=== PATIENT | female | born 1985 | race Caucasian/White ===

== ENCOUNTER 2018-12-16 22:30 | Observation (INO) | payer MEDICAID ==
--- NOTE | 2018-12-16 22:50 | EDM.PDOC ---
ED HPI GENERAL MEDICAL PROBLEM - General Chief Complaint: Abdominal Pain Stated Complaint: 6WKS PG BACK AND SIDE PAIN Time Seen by Provider: 12/16/18 22:48 Source of Information: Reports: Patient History Limitations: Reports: No Limitations - History of Present Illness INITIAL COMMENTS - FREE TEXT/NARRATIVE: 33-year-old female presents the ED with acute onset of severe left-sided lower abdominal pain started about one half hour ago. There is a bit of a colicky component to the pain. Pain is constant and she states now felt across the entire lower abdomen suprapubically. Also filling into her left side of her back. Last trimester. Was November 05 and she is known to be . She is considered 9 para 5 with 3 previous miscarriages. Previous ectopic . Also been working normally. Denies any genitourinary complaints. No previous abdominal surgery. She can't stand erect and is walking very slowly. Anus currently rated as 8 or 9 out of 10. Denies any bleeding per vagina. Onset: Today Onset Date: 12/16/18 Onset Time: 21:45 Duration: Minutes: Location: Reports: Abdomen (Diffuse lower abdominal pain worse on the left as compared to the right.), Radiates to Quality: Reports: Ache (Radiates into her left lower back.), Throbbing, Other Severity: Severe (Mild colicky component to the pain 8-9 out of 10) Improves with: Reports: None Worsens with: Reports: None, Other Context: Denies: Activity, Exercise (It is worse with walking. Cannot stand erect), Lifting, Sick Contact, Trauma, Other Associated Symptoms: Reports: Weakness. Denies: No Other Symptoms, Confusion, Chest Pain, Cough, cough w sputum, Diaphoresis, Fever/Chills, Headaches, Malaise , Nausea/Vomiting, Seizure, Shortness of Breath, Syncope Treatments CONTENT DEVELOPER: Reports: Other (see below) (None.) Bilateral Abdominal Pain Score (Numeric/FACES): 8 - Related Data Allergies Allergy/AdvReac Type Severity Reaction Status Date / Time nitrofurantoin Allergy Rash Verified 12/16/18 22:47 [From Macrobid] nitrofurantoin Allergy Rash Verified 12/16/18 22:47 macrocrystalline [From Macrobid] Penicillins Allergy Rash Verified 12/16/18 22:47 Home Meds: Home Meds Vits #93/Iron Fum/FA [ Formula Tablet] 1 tab PO DAILY 12/16/18 [History] Past Medical History - Past Health History Medical/Surgical History: Denies Medical/Surgical History 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 Denies: Dysuria, Flank Pain, Urgency Musculoskeletal: Reports: Back Pain Skin: Reports: No Symptoms (Left back pain referred from the left lower abdominal pain.) Neurological: Reports: No Symptoms Psychiatric: Reports: No Symptoms Hematologic/Lymphatic: Reports: No Symptoms Immunologic: Reports: No Symptoms ED EXAM, GI/ABD - Physical Exam Exam: See Below Exam Limited By: No Limitations General Appearance: Alert, WD/WN, Moderate Distress Eyes: Bilateral: Normal Appearance Throat/Mouth: Normal Inspection, Normal Lips, Normal Teeth, Normal Oropharynx Head: Atraumatic, Normocephalic Neck: Normal Inspection, Supple, Non-Tender, Full Range of Motion. No: Lymphadenopathy (L), Lymphadenopathy (R) Respiratory/Chest: No Respiratory Distress, Lungs Clear, Normal Breath Sounds, No Accessory Muscle Use, Chest Non-Tender Cardiovascular: Normal Peripheral Pulses, Regular Rate, Rhythm, No Edema, No Gallop, No Murmur, No Rub, Systolic Murmur GI/Abdominal Exam: Normal Bowel Sounds, Soft, Guarding, Tender (Very tender suprapubically with a sense of fullness and guarding). No: Rigid ( suprapubically midline infraumbilical.), Rebound Back Exam: Normal Inspection, Full Range of Motion. No: CVA Tenderness (L), CVA Tenderness (R) Extremities: Normal Inspection, Normal Range of Motion, Non-Tender Neurological: Alert, Oriented, CN II-XII Intact, Normal Cognition. No: Normal Gait Psychiatric: Anxious Skin Exam: Warm, Dry, Normal Color, No Rash Course - Vital Signs Last Recorded V/S: Last Vital Signs Temp 36.4 C 12/16/18 22:46 Pulse 78 12/16/18 22:46 Resp 13 12/16/18 22:46 BP 100/55 L 12/16/18 22:46 Pulse Ox 100 12/16/18 22:46 Orthostatic Blood Pressure [ 107/63 Standing] Orthostatic Blood Pressure [ 101/49 Sitting] - Orders/Labs/Meds Orders: Active Orders 24 hr Category Date Time Status Admission Status [Patient Status] [ADT] Routine ADT 12/17/18 02:25 Active Notify Provider Consults [RC] ASDIRECTED Care 12/17/18 02:18 Active Orthostatic Vital Signs [RC] ASDIRECTED Care 12/16/18 22:48 Active Consult to Physician [CONS] Stat Cons 12/17/18 02:17 Active OB Transvaginal [US] Stat Exams 12/16/18 22:55 Taken CULTURE URINE [RM] Routine Lab 12/17/18 00:53 Received Sodium Chloride 0.9% [Normal Saline] 1,000 ml Med 12/16/18 23:00 Active IV ASDIRECTED Medication Orders Sodium Chloride (Normal Saline) 1,000 mls @ 150 mls/hr IV ASDIRECTED SHASHANK Last Admin: 12/16/18 23:10 Dose: 150 mls/hr Labs: Laboratory Tests 12/16/18 12/16/18 12/16/18 Range/Units 23:00 23:00 23:00 WBC 8.64 (3.98-10.04) K/mm3 RBC 4.31 (3.98-5.22) M/mm3 Hgb 13.0 (11.2-15.7) gm/L Hct 37.9 (34.1-44.9) % MCV 87.9 (79.4-94.8) fl MCH 30.2 (25.6-32.2) pg MCHC 34.3 (32.2-35.5) g/dl RDW Std Deviation 38.8 (36.4-46.3) fL Plt Count 253 (182-369) K/mm3 MPV 9.0 L (9.4-12.3) fl Neut % (Auto) 55.7 (34.0-71.1) % Lymph % (Auto) 32.2 (19.3-51.7) % [place] % (Auto) 9.4 (4.7-12.5) % Eos % (Auto) 2.2 (0.7-5.8) Baso % (Auto) 0.3 (0.1-1.2) % Neut # (Auto) 4.81 (1.56-6.13) K/mm3 Lymph # (Auto) 2.78 (1.18-3.74) K/mm3 [place] # (Auto) 0.81 H (0.24-0.36) K/mm3 Eos # (Auto) 0.19 (0.04-0.36) K/mm3 Baso # (Auto) 0.03 (0.01-0.08) K/mm3 PT 10.1 (9.7-12.0) SECONDS INR < 0.93 APTT (22-31) SECONDS Sodium 138 (136-145) mEq/L Potassium 3.5 (3.5-5.1) mEq/L Chloride 102 (98-107) mEq/L Carbon Dioxide 27 (21-32) mEq/L Anion Gap 12.5 (5-15) BUN 11 (7-18) mg/dL Creatinine 0.8 (0.55-1.02) mg/dL Est Cr Clr Drug Dosing 97.59 mL/min Estimated GFR (MDRD) > 60 (>60) mL/min BUN/Creatinine Ratio 13.8 L (14-18) Glucose 108 H (74-106) mg/dL Calcium 8.7 (8.5-10.1) mg/dL Total Bilirubin 0.4 (0.2-1.0) mg/dL AST 15 (15-37) U/L ALT 17 (14-59) U/L Alkaline Phosphatase 48 (46-116) U/L C-Reactive Protein (<1.0) mg/dL Total Protein 7.3 (6.4-8.2) g/dl Albumin 3.6 (3.4-5.0) g/dl Globulin 3.7 gm/dL Albumin/Globulin Ratio 1.0 (1-2) HCG, Quant mIU/mL Urine Color (Yellow) Urine Appearance (Clear) Urine pH (5.0-8.0) Ur Specific [place] (1.005-1.030) Urine Protein (Negative) Urine Glucose (UA) (Negative) Urine Ketones (Negative) Urine Occult Blood (Negative) Urine Nitrite (Negative) Urine Bilirubin (Negative) Urine Urobilinogen (0.2-1.0) Ur Leukocyte Esterase (Negative) Urine RBC (0-5) /hpf Urine WBC (0-5) /hpf Ur Squamous Epith Cells (0-5) /hpf Urine Bacteria (FEW) /hpf Urine Mucus (FEW) /hpf Blood Type Gel Antibody Screen 12/16/18 12/16/18 12/16/18 Range/Units 23:00 23:00 23:00 WBC (3.98-10.04) K/mm3 RBC (3.98-5.22) M/mm3 Hgb (11.2-15.7) gm/L Hct (34.1-44.9) % MCV (79.4-94.8) fl MCH (25.6-32.2) pg MCHC (32.2-35.5) g/dl RDW Std Deviation (36.4-46.3) fL Plt Count (182-369) K/mm3 MPV (9.4-12.3) fl Neut % (Auto) (34.0-71.1) % Lymph % (Auto) (19.3-51.7) % [place] % (Auto) (4.7-12.5) % Eos % (Auto) (0.7-5.8) Baso % (Auto) (0.1-1.2) % Neut # (Auto) (1.56-6.13) K/mm3 Lymph # (Auto) (1.18-3.74) K/mm3 [place] # (Auto) (0.24-0.36) K/mm3 Eos # (Auto) (0.04-0.36) K/mm3 Baso # (Auto) (0.01-0.08) K/mm3 PT (9.7-12.0) SECONDS INR APTT 26 (22-31) SECONDS Sodium (136-145) mEq/L Potassium (3.5-5.1) mEq/L Chloride (98-107) mEq/L Carbon Dioxide (21-32) mEq/L Anion Gap (5-15) BUN (7-18) mg/dL Creatinine (0.55-1.02) mg/dL Est Cr Clr Drug Dosing mL/min Estimated GFR (MDRD) (>60) mL/min BUN/Creatinine Ratio (14-18) Glucose (74-106) mg/dL Calcium (8.5-10.1) mg/dL Total Bilirubin (0.2-1.0) mg/dL AST (15-37) U/L ALT (14-59) U/L Alkaline Phosphatase (46-116) U/L C-Reactive Protein < 0.2 (<1.0) mg/dL Total Protein (6.4-8.2) g/dl Albumin (3.4-5.0) g/dl Globulin gm/dL Albumin/Globulin Ratio (1-2) HCG, Quant 3162.0 mIU/mL Urine Color (Yellow) Urine Appearance (Clear) Urine pH (5.0-8.0) Ur Specific [place] (1.005-1.030) Urine Protein (Negative) Urine Glucose (UA) (Negative) Urine Ketones (Negative) Urine Occult Blood (Negative) Urine Nitrite (Negative) Urine Bilirubin (Negative) Urine Urobilinogen (0.2-1.0) Ur Leukocyte Esterase (Negative) Urine RBC (0-5) /hpf Urine WBC (0-5) /hpf Ur Squamous Epith Cells (0-5) /hpf Urine Bacteria (FEW) /hpf Urine Mucus (FEW) /hpf Blood Type O NEGATIVE Gel Antibody Screen Negative 12/17/18 Range/Units 00:53 WBC (3.98-10.04) K/mm3 RBC (3.98-5.22) M/mm3 Hgb (11.2-15.7) gm/L Hct (34.1-44.9) % MCV (79.4-94.8) fl MCH (25.6-32.2) pg MCHC (32.2-35.5) g/dl RDW Std Deviation (36.4-46.3) fL Plt Count (182-369) K/mm3 MPV (9.4-12.3) fl Neut % (Auto) (34.0-71.1) % Lymph % (Auto) (19.3-51.7) % [place] % (Auto) (4.7-12.5) % Eos % (Auto) (0.7-5.8) Baso % (Auto) (0.1-1.2) % Neut # (Auto) (1.56-6.13) K/mm3 Lymph # (Auto) (1.18-3.74) K/mm3 [place] # (Auto) (0.24-0.36) K/mm3 Eos # (Auto) (0.04-0.36) K/mm3 Baso # (Auto) (0.01-0.08) K/mm3 PT (9.7-12.0) SECONDS INR APTT (22-31) SECONDS Sodium (136-145) mEq/L Potassium (3.5-5.1) mEq/L Chloride (98-107) mEq/L Carbon Dioxide (21-32) mEq/L Anion Gap (5-15) BUN (7-18) mg/dL Creatinine (0.55-1.02) mg/dL Est Cr Clr Drug Dosing mL/min Estimated GFR (MDRD) (>60) mL/min BUN/Creatinine Ratio (14-18) Glucose (74-106) mg/dL Calcium (8.5-10.1) mg/dL Total Bilirubin (0.2-1.0) mg/dL AST (15-37) U/L ALT (14-59) U/L Alkaline Phosphatase (46-116) U/L C-Reactive Protein (<1.0) mg/dL Total Protein (6.4-8.2) g/dl Albumin (3.4-5.0) g/dl Globulin gm/dL Albumin/Globulin Ratio (1-2) HCG, Quant mIU/mL Urine Color Yellow (Yellow) Urine Appearance Cloudy H (Clear) Urine pH 6.0 (5.0-8.0) Ur Specific [place] 1.025 (1.005-1.030) Urine Protein Negative (Negative) Urine Glucose (UA) Negative (Negative) Urine Ketones Negative (Negative) Urine Occult Blood Negative (Negative) Urine Nitrite Positive H (Negative) Urine Bilirubin Negative (Negative) Urine Urobilinogen 1.0 (0.2-1.0) Ur Leukocyte Esterase Negative (Negative) Urine RBC 0-5 (0-5) /hpf Urine WBC 0-5 (0-5) /hpf Ur Squamous Epith Cells 0-5 (0-5) /hpf Urine Bacteria Many H (FEW) /hpf Urine Mucus Few (FEW) /hpf Blood Type Gel Antibody Screen Meds: Medications Generic Name Dose Route Start Last Admin Trade Name Kassie PRN Reason Stop Dose Admin Sodium Chloride 1,000 mls @ 150 mls/hr 12/16/18 23:00 12/16/18 23:10 Normal Saline IV 150 mls/hr ASDIRECTED SHASHANK Administration Discontinued Medications Generic Name Dose Route Start Last Admin Trade Name Kassie PRN Reason Stop Dose Admin Hydromorphone HCl 1 mg 12/16/18 22:55 12/16/18 23:12 Dilaudid IVPUSH 12/16/18 22:56 1 mg ONETIME ONE Administration Metoclopramide HCl 7.5 mg 12/16/18 22:55 12/16/18 23:10 Reglan IVPUSH 12/16/18 22:56 7.5 mg ONETIME ONE Administration - Radiology Interpretation Free Text/Narrative:: 33-year-old female who is 9 para 5 presents to the ED with known . Last trimester. Was November 05. Sudden onset of severe left-sided abdominal pain about an hour and a half before arrival in the ED that made it very difficult to walk or stand erect. Pain is now changed and is more suprapubic and across her lower abdomen radiates into her left lower back. Denies any dysuria urgency or frequency. She has had 3 previous miscarriages. No previous ectopic pregnancies. Examination reveals fullness guarding suprapubically. No rebound tenderness. Denies any bleeding per vagina. Plan IV normal saline at 150 mils per hour. The static BPs. Urinalysis. Routine labs including type and screen. Transvaginal ultrasound. Will be given Dilaudid 1 mg IV for pain relief with Reglan 7.5 mg IV for nausea relief. Concern is for ectopic . - Re-Assessments/Exams Free Text/Narrative Re-Assessment/Exam: 12/17/18 00:21 Labs reveal a normal white count at 8.64. Differential shows 56% neutrophils on the auto differential. Hemoglobin is 13.0 with hematocrit of 37.9. Platelet count 2 53,000. PT is 10.1 with an INR is less than 0.93. PTT is 26. Sodium 138 with potassium of 3.5. Chloride is 102 with a bicarbonate 27. Anion gap is 12.5. BUN is 11 creatinine is 0.8. Glucose is 108. Calcium is 8.7. Liver function normal. C-reactive protein less than 0.2 total protein 7.3 with albumin fraction of 3.6. Quantitative beta-hCG is pending. Blood type is O neg.. Antibody gel screen is negative. Patient is still an ultrasound suite. 12/17/18 00:39 Quantitative beta-hCG is 3162. This correlates with a 2-3 week gestation. Dates she would be 5 weeks gestation. She has completed transvaginal ultrasound. There is a gestational sac present in utero. Minimal yolk sac appearance no pole yet appreciated. This would correlate with her dates. He does not appear to be any blood or free fluid within the cul-de-sac. Both ovaries appear to be within normal limits. Awaiting radiology report in this regard. She has yet to pass her urine to rule out a kidney stone. 12/17/18 01:21 urinalysis is positive for nitrates and many bacteria but no sign of any blood. Leukocyte esterase is negative. 12/17/18 01:31/the findings with the patient and her . She is still walking hunched over and pain is still 5 out of 10. She doesn't want any more pain medicine at this time. Examination reveals pain well localized to the left lower abdomen just above the pelvic bone. I'm concerned therefore that she may have a torsion of the left adnexa. I'm going to discuss case with Dr. Fair who is the on-call obscuration whom the patient is seen for 2 of her deliveries. At this time she feels she doesn't need anymore analgesia. 12/17/18 02:18 Dr. Fair has attended the patient in the ED and decision made to admit her to the hospital for observation status. If pain worsens she will be a candidate for exploratory laparoscopy. The exact cause of her significant pain is unclear at this time. 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 Guarding on palpation suprapubically. Noted early with last trimester. Being November 05. Transvaginal ultrasound correlates with a very early with a gestational sac present in in utero without evidence of a pole at this time. There appears to be very early yolk sac. Both ovaries appear to have adequate blood supply and there is no free fluid in the pelvis. Therefore the exact cause of her significant left-sided pelvic pain is unclear. Plan is to be admitted to the obstetrical floor for observation status by Dr. Fair. - My Orders Last 24 Hours: My Active Orders 12/16/18 22:48 Orthostatic Vital Signs [RC] ASDIRECTED 12/16/18 22:55 OB Transvaginal [US] Stat 12/16/18 23:00 Sodium Chloride 0.9% [Normal Saline] 1,000 ml IV ASDIRECTED 12/17/18 00:53 CULTURE URINE [RM] Routine 12/17/18 02:17 Consult to Physician [CONS] Stat 12/17/18 02:18 Notify Provider Consults [RC] ASDIRECTED 12/17/18 02:25 Admission Status [Patient Status] [ADT] Routine - Assessment/Plan Last 24 Hours: My Active Orders 12/16/18 22:48 Orthostatic Vital Signs [RC] ASDIRECTED 12/16/18 22:55 OB Transvaginal [US] Stat 12/16/18 23:00 Sodium Chloride 0.9% [Normal Saline] 1,000 ml IV ASDIRECTED 12/17/18 00:53 CULTURE URINE [RM] Routine 12/17/18 02:17 Consult to Physician [CONS] Stat 12/17/18 02:18 Notify Provider Consults [RC] ASDIRECTED 12/17/18 02:25 Admission Status [Patient Status] [ADT] Routine
[2018-12-16] MEDS ORDERED: HYDROmorphone 1 MG/ML Syringe IVPUSH ONE (22:55)
[2018-12-16] MEDS ORDERED: Metoclopramide 10 MG/2 ML SDV IVPUSH ONE (22:55)
[2018-12-16] MEDS ORDERED: Sodium Chloride 0.9% 1,000 ML IV SCH (23:00)
--- NOTE | 2018-12-17 02:47 | PCM.LDHP ---
L&D History of Present Illness - General Date of Service: 12/17/18 Admit Problem/Dx: Patient Status Order with Admit Dx/Problem 12/17/18 02:25 Admission Status [Patient Status] [ADT] Routine Admission Diagnosis/Problem Admission Diagnosis/Problem Pelvic pain affecting in first trimester , antepartum 12/17/18 02:34 33-year-old 9 para 4135 white female with left lower quadrant pelvic pain, positive test and intrauterine gestational sac. Source of Information: Patient History Limitations: Reports: No Limitations - History of Present Illness Introduction:: 33-year-old 9 para 4135 white female with left lower quadrant pelvic pain, positive test and intrauterine gestational sac.She was seen in the emergency room by Dr. Xiong and felt to have significant amount discomfort in left lower quadrant. She reports that she had only minimal discomfort approximately 2 days ago which resolved spontaneously. Last evening at approximately 2030 hrs. on 12/16/2018 she began having acute onset of pain initially bilateral but then became left lower quadrant. Described as stabbing, squeezing, sharp. It was constant. Increased with lying down but also worsens with some activities. She has a certain last menstrual periods of 11/05/2018. Her cycles are regular. She is not using any control at time of conception. She is accepting of . She denies any vaginal bleeding. She also denies any vaginal loss of fluid. She denies any urinary tract infection symptoms, fever, chills or other infectious symptoms. Reports her pain now is 8 on a scale of 10 but had intermittently gone up to 10 on the scale 10 and she compared to her contractions with her last delivery. Has no symptoms at this time. Clinically in the emergency room patient 7 significant amount of pain. She is not allow examination well by the emergency room doctor. At the time of my examination patient had received some IV analgesia and was less discomfort. She did allow for an exam. Evaluation in the emergency room shows white count of 8.64. Hemoglobin is 13.0 and hematocrit is 37.9. Platelets are 253,000. Her serum quantitative beta hCG is 3162.0 mU/mL. Comprehensive metabolic profile was within normal limits for . PT is 10.1normal. INR 0.93normal. PTT is 26normal. Analysis shows significant nitrates and many bacteria. Urine culture is set up. Ultrasound shows the followin. Small 7 mm gestational sac noted within the mid body of the uterus corresponding to an early intrauterine of less than 6 weeks' gestation. No pole or yolk sac identified. 2. No abnormal adnexal mass or fluid noted. 3. There appears to be good blood flow to both ovaries. Ovaries are normal size bilaterally. 4. Ovary measures 2.8 x 2.2 cm and contains a small corpus luteal cyst of measuring 10 mm. Left ovary is normal measuring 2.9 x 1.5 cm. Past medical history: 1. Vaginal delivery 5 with one at 36-1/2 weeks and the others after 37 weeks.. 2 . Spontaneous 3-natural passage. Past surgical history: 1. Cervical cone biopsy for dysplasia 2. Laparoscopy approximate 6 years ago for ovarian cyst 3. [place] teeth extraction Family history: Mother is alive and in generally good health. Father takes a bronchodilator. Patient has 3 brothers and 1 sister who are alive and well. Maternal grandmother is alive but suffers from heart disease. Maternal grandfather has diabetes. Paternal grandmother and grandfather deceasedcause unknown. Maternal great grandmother is alive and generally healthy at age 101 no anesthesia, bleeding, blood clotting problems noted in the family. Social history: Patient lives in the [facility]. She does not use any significant loss of alcohol, drugs or tobacco. 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 Review of systems: In general patient only complaint is left lower quadrant. She denies any symptoms, vaginal bleeding, infectious symptoms. Skin: Negative Lungs: No infectious symptoms or shortness of breath Cardiovascular: No chest pain or exercise intolerance Breasts: No lumps, changes in size, pain, dimpling, discharge or axillary or supraclavicular concerns. GI: Last bowel movement was last eveningnormal. She reports no diarrhea or constipation.. : As per history of present illness. Musculoskeletal: Negative Neurological: Negative In general the patient is well-developed, well-nourished, pleasant female of stated age in minimal distress. She has however received some IV pain medications prior to my exam and interview. Skin is warm dry without lesions. HEENT, neck and back within normal limits. Lungs are clear with good breath sounds in all lung sanderson. Cardiovascular exam shows regular and rhythm without murmurs. Abdomen is flat, soft, is tender with deep palpation. No rebound tenderness is noted. Minimal guarding is noted. Patient again has had pain medication prior to this exam. No masses or organomegaly are noted. Uterus is not palpated above the pubic bone. Positive bowel sounds are noted. No inguinal lymphadenopathy or hernias are noted. Genital exam per bimanual shows normal external genitalia, BUS, pubic hair pattern. There is normal support, secretions and estrogenization vagina. There is no bleeding noted. Uterus is small, anterior, freely mobile, without parametrial induration or adnexal abnormalities. Some tenderness is noted in left lower quadrant. No masses or organomegaly are noted. Cervix is closed. Extremities and neurological exam are grossly within normal limits. 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 - Past Surgical History HEENT Surgical History: Reports: Oral Surgery Social & Family History - Tobacco Use Smoking Status *Q: Never Smoker - Caffeine Use Caffeine Use: Reports: Soda, Tea - Recreational Drug Use Recreational Drug Use: No - Living Situation & Occupation Living situation: Reports: Occupation: Unemployed H&P Review of Systems - Review of Systems: Review Of Systems: See Below L&D Exam - Exam Exam: See Below - Vital Signs Vital Signs: Last Vital Signs Temp 36.4 C 12/16/18 22:46 Pulse 78 12/16/18 22:46 Resp 13 12/16/18 22:46 BP 100/55 L 12/16/18 22:46 Pulse Ox 100 12/16/18 22:46 Orthostatic Blood Pressure [ 107/63 Standing] Orthostatic Blood Pressure [ 101/49 Sitting] Weight: 61.235 kg - Patient Data Lab Results Last 24 hrs: Laboratory Results - last 24 hr 12/16/18 12/16/18 12/16/18 Range/Units 23:00 23:00 23:00 WBC 8.64 (3.98-10.04) K/mm3 RBC 4.31 (3.98-5.22) M/mm3 Hgb 13.0 (11.2-15.7) gm/L Hct 37.9 (34.1-44.9) % MCV 87.9 (79.4-94.8) fl MCH 30.2 (25.6-32.2) pg MCHC 34.3 (32.2-35.5) g/dl RDW Std Deviation 38.8 (36.4-46.3) fL Plt Count 253 (182-369) K/mm3 MPV 9.0 L (9.4-12.3) fl Neut % (Auto) 55.7 (34.0-71.1) % Lymph % (Auto) 32.2 (19.3-51.7) % [place] % (Auto) 9.4 (4.7-12.5) % Eos % (Auto) 2.2 (0.7-5.8) Baso % (Auto) 0.3 (0.1-1.2) % Neut # (Auto) 4.81 (1.56-6.13) K/mm3 Lymph # (Auto) 2.78 (1.18-3.74) K/mm3 [place] # (Auto) 0.81 H (0.24-0.36) K/mm3 Eos # (Auto) 0.19 (0.04-0.36) K/mm3 Baso # (Auto) 0.03 (0.01-0.08) K/mm3 PT 10.1 (9.7-12.0) SECONDS INR < 0.93 APTT (22-31) SECONDS Sodium 138 (136-145) mEq/L Potassium 3.5 (3.5-5.1) mEq/L Chloride 102 (98-107) mEq/L Carbon Dioxide 27 (21-32) mEq/L Anion Gap 12.5 (5-15) BUN 11 (7-18) mg/dL Creatinine 0.8 (0.55-1.02) mg/dL Est Cr Clr Drug Dosing 97.59 mL/min Estimated GFR (MDRD) > 60 (>60) mL/min BUN/Creatinine Ratio 13.8 L (14-18) Glucose 108 H (74-106) mg/dL Calcium 8.7 (8.5-10.1) mg/dL Total Bilirubin 0.4 (0.2-1.0) mg/dL AST 15 (15-37) U/L ALT 17 (14-59) U/L Alkaline Phosphatase 48 (46-116) U/L C-Reactive Protein (<1.0) mg/dL Total Protein 7.3 (6.4-8.2) g/dl Albumin 3.6 (3.4-5.0) g/dl Globulin 3.7 gm/dL Albumin/Globulin Ratio 1.0 (1-2) HCG, Quant mIU/mL Urine Color (Yellow) Urine Appearance (Clear) Urine pH (5.0-8.0) Ur Specific [place] (1.005-1.030) Urine Protein (Negative) Urine Glucose (UA) (Negative) Urine Ketones (Negative) Urine Occult Blood (Negative) Urine Nitrite (Negative) Urine Bilirubin (Negative) Urine Urobilinogen (0.2-1.0) Ur Leukocyte Esterase (Negative) Urine RBC (0-5) /hpf Urine WBC (0-5) /hpf Ur Squamous Epith Cells (0-5) /hpf Urine Bacteria (FEW) /hpf Urine Mucus (FEW) /hpf Blood Type Gel Antibody Screen 12/16/18 12/16/18 12/16/18 Range/Units 23:00 23:00 23:00 WBC (3.98-10.04) K/mm3 RBC (3.98-5.22) M/mm3 Hgb (11.2-15.7) gm/L Hct (34.1-44.9) % MCV (79.4-94.8) fl MCH (25.6-32.2) pg MCHC (32.2-35.5) g/dl RDW Std Deviation (36.4-46.3) fL Plt Count (182-369) K/mm3 MPV (9.4-12.3) fl Neut % (Auto) (34.0-71.1) % Lymph % (Auto) (19.3-51.7) % [place] % (Auto) (4.7-12.5) % Eos % (Auto) (0.7-5.8) Baso % (Auto) (0.1-1.2) % Neut # (Auto) (1.56-6.13) K/mm3 Lymph # (Auto) (1.18-3.74) K/mm3 [place] # (Auto) (0.24-0.36) K/mm3 Eos # (Auto) (0.04-0.36) K/mm3 Baso # (Auto) (0.01-0.08) K/mm3 PT (9.7-12.0) SECONDS INR APTT 26 (22-31) SECONDS Sodium (136-145) mEq/L Potassium (3.5-5.1) mEq/L Chloride (98-107) mEq/L Carbon Dioxide (21-32) mEq/L Anion Gap (5-15) BUN (7-18) mg/dL Creatinine (0.55-1.02) mg/dL Est Cr Clr Drug Dosing mL/min Estimated GFR (MDRD) (>60) mL/min BUN/Creatinine Ratio (14-18) Glucose (74-106) mg/dL Calcium (8.5-10.1) mg/dL Total Bilirubin (0.2-1.0) mg/dL AST (15-37) U/L ALT (14-59) U/L Alkaline Phosphatase (46-116) U/L C-Reactive Protein < 0.2 (<1.0) mg/dL Total Protein (6.4-8.2) g/dl Albumin (3.4-5.0) g/dl Globulin gm/dL Albumin/Globulin Ratio (1-2) HCG, Quant 3162.0 mIU/mL Urine Color (Yellow) Urine Appearance (Clear) Urine pH (5.0-8.0) Ur Specific [place] (1.005-1.030) Urine Protein (Negative) Urine Glucose (UA) (Negative) Urine Ketones (Negative) Urine Occult Blood (Negative) Urine Nitrite (Negative) Urine Bilirubin (Negative) Urine Urobilinogen (0.2-1.0) Ur Leukocyte Esterase (Negative) Urine RBC (0-5) /hpf Urine WBC (0-5) /hpf Ur Squamous Epith Cells (0-5) /hpf Urine Bacteria (FEW) /hpf Urine Mucus (FEW) /hpf Blood Type O NEGATIVE Gel Antibody Screen Negative 12/17/18 Range/Units 00:53 WBC (3.98-10.04) K/mm3 RBC (3.98-5.22) M/mm3 Hgb (11.2-15.7) gm/L Hct (34.1-44.9) % MCV (79.4-94.8) fl MCH (25.6-32.2) pg MCHC (32.2-35.5) g/dl RDW Std Deviation (36.4-46.3) fL Plt Count (182-369) K/mm3 MPV (9.4-12.3) fl Neut % (Auto) (34.0-71.1) % Lymph % (Auto) (19.3-51.7) % [place] % (Auto) (4.7-12.5) % Eos % (Auto) (0.7-5.8) Baso % (Auto) (0.1-1.2) % Neut # (Auto) (1.56-6.13) K/mm3 Lymph # (Auto) (1.18-3.74) K/mm3 [place] # (Auto) (0.24-0.36) K/mm3 Eos # (Auto) (0.04-0.36) K/mm3 Baso # (Auto) (0.01-0.08) K/mm3 PT (9.7-12.0) SECONDS INR APTT (22-31) SECONDS Sodium (136-145) mEq/L Potassium (3.5-5.1) mEq/L Chloride (98-107) mEq/L Carbon Dioxide (21-32) mEq/L Anion Gap (5-15) BUN (7-18) mg/dL Creatinine (0.55-1.02) mg/dL Est Cr Clr Drug Dosing mL/min Estimated GFR (MDRD) (>60) mL/min BUN/Creatinine Ratio (14-18) Glucose (74-106) mg/dL Calcium (8.5-10.1) mg/dL Total Bilirubin (0.2-1.0) mg/dL AST (15-37) U/L ALT (14-59) U/L Alkaline Phosphatase (46-116) U/L C-Reactive Protein (<1.0) mg/dL Total Protein (6.4-8.2) g/dl Albumin (3.4-5.0) g/dl Globulin gm/dL Albumin/Globulin Ratio (1-2) HCG, Quant mIU/mL Urine Color Yellow (Yellow) Urine Appearance Cloudy H (Clear) Urine pH 6.0 (5.0-8.0) Ur Specific [place] 1.025 (1.005-1.030) Urine Protein Negative (Negative) Urine Glucose (UA) Negative (Negative) Urine Ketones Negative (Negative) Urine Occult Blood Negative (Negative) Urine Nitrite Positive H (Negative) Urine Bilirubin Negative (Negative) Urine Urobilinogen 1.0 (0.2-1.0) Ur Leukocyte Esterase Negative (Negative) Urine RBC 0-5 (0-5) /hpf Urine WBC 0-5 (0-5) /hpf Ur Squamous Epith Cells 0-5 (0-5) /hpf Urine Bacteria Many H (FEW) /hpf Urine Mucus Few (FEW) /hpf Blood Type Gel Antibody Screen Result Diagrams: 12/16/18 23:00 12/16/18 23:00 Problem List Initiated/Reviewed/Updated: Yes Orders Last 24hrs: Active Orders 24 hr Category Date Time Status Admission Status [Patient Status] [ADT] Routine ADT 12/17/18 02:25 Active Patient Status Manage Transfer [TRANSFER] Routine ADT 12/17/18 02:25 Ordered Notify Provider Consults [RC] ASDIRECTED Care 12/17/18 02:18 Active Orthostatic Vital Signs [RC] ASDIRECTED Care 12/16/18 22:48 Active Consult to Physician [CONS] Stat Cons 12/17/18 02:17 Active OB Transvaginal [US] Stat Exams 12/16/18 22:55 Taken CULTURE URINE [RM] Routine Lab 12/17/18 00:53 Received Sodium Chloride 0.9% [Normal Saline] 1,000 ml Med 12/16/18 23:00 Active IV ASDIRECTED Resuscitation Status Routine Resus Stat 12/17/18 02:27 Ordered Medication Orders Sodium Chloride (Normal Saline) 1,000 mls @ 150 mls/hr IV ASDIRECTED SHASHANK Last Admin: 12/16/18 23:10 Dose: 150 mls/hr Assessment/Plan Comment:: 1. Left lower quadrant pain- test with quantitative beta-hCG of 3162.0 mU/mL, intrauterine gestational sac, no free fluid in the posterior cul-de-sac, ovaries appear normal. Differential diagnosis includes ruptured or leaking corpus luteum cyst. Entirely rule out ectopic -ectopic precautions are given. Doubt torsion of the ovary at this time. Doubt infectious etiology involving the pelvic cavity. Cannot entirely rule out urinary tract infection- nitrates on UA are positive and many bacteria seen-patient is asymptomatic-UC set up. 2. Generally healthy female. 3. Desiring Plan: 1. Conservative management over the next 4-5 hours with analgesia, IV fluids and nothing by mouth status. Reassess at that time to see whether pain has improved. If improved will proceed with conservative management and with ultrasound and serum quantitative beta hCG in 2 days. If pain persists proceed with laparoscopy, possible salpingectomy, possible oophorectomy, possible laparotomy. The procedure, risks, benefits as it pertains to her end of , possible inability to find in her treatment causing her discomfort, postoperative course DISCUSSED in detail with patient and her significant other. They appear to understand. 2. IV fluids of D5 LR 125 mL an hour 3. Nothing by mouth status 4. Dilaudid 0.5 mg IV every 2 hours when necessary for pain
[2018-12-17] MEDS ORDERED: Lactated Ringers 1,000 ML IV SCH (03:05)
[2018-12-17] MEDS ORDERED: HYDROmorphone 0.5 MG/0.5 ML Syringe IVPUSH PRN ×2 (03:05→06:58)
[2018-12-17] MEDS ORDERED: Nalbuphine 10 MG/1 ML Vial IVPUSH PRN (03:05)
[2018-12-17] MEDS ORDERED: Citric Acid/Sodium Citrate Solution 30 ML Cup ONE (05:51)
[2018-12-17] MEDS ORDERED: Metoclopramide 10 MG/2 ML SDV ONE (05:52)
[2018-12-17] MEDS ORDERED: Citric Acid/Sodium Citrate Solution 30 ML Cup PO ONE (06:01)
[2018-12-17] MEDS ORDERED: ceFAZolin 2 GM in Premix Bag 1 BAG IV ONE (06:01)
[2018-12-17] MEDS ORDERED: Metoclopramide 10 MG/2 ML SDV IVPUSH ONE (06:01)
--- NOTE | 2018-12-17 06:10 | PCM.SN ---
- Free Text/Narrative Note: Progress note: I was called by the patient's nurse at approximately 0530 hrs. reporting that the patient was describing the pain again as 10 out of 10. She had received 1 dose of Dilaudid 0.5 mg IV during the course of her short stay in the area. Nurse did say that the patient had slept somewhat during the course this time and needed to be awakened for vital signs. The patient reports the pain to be in the left lower quadrantsame location as previously. The clinical appearance of the patient and her description of the intensity/ severity of her pain seems to be somewhat inconsistent with one another at this time. Patient wishes to proceed with surgery at this time for evaluation and treatment of this discomfort. Again the procedure, risks, benefits, possible inability to find and/or treat the cause of her discomfort, the possible effects on and the follow-up after surgery all discussed in detail with the patient. Plan is to proceed with laparoscopy, possible salpingectomy, possible oophorectomy, possible laparotomy. She appears to understand, wishes to proceed and has signed a consent.
[2018-12-17] MEDS ORDERED: Rocuronium 50 MG/5 ML Vial ONE (06:12)
[2018-12-17] MEDS ORDERED: Lidocaine 1% 4 ML ONE (06:12)
[2018-12-17] MEDS ORDERED: Ondansetron 4 MG/2 ML SDV ONE (06:12)
[2018-12-17] MEDS ORDERED: fentaNYL 250 MCG/5 ML SDV ONE (06:13)
[2018-12-17] MEDS ORDERED: Propofol 200 MG/20 ML SDV ONE (06:13)
[2018-12-17] MEDS ORDERED: Midazolam 1 MG/ML 2 ML SDV ONE (06:13)
[2018-12-17] MEDS ORDERED: Bupivacaine 0.5% 30 ML SDV ONE (06:18)
--- NOTE | 2018-12-17 06:30 | PCM.PREANE ---
Preanesthetic Assessment - Procedure Proposed Procedure: laparosopy - Anesthesia/Transfusion/Family Hx Anesthesia History: Prior Anesthesia Without Reaction Family History of Anesthesia Reaction: No Transfusion History: No Prior Transfusion(s) - Review of Systems General: No Symptoms Pulmonary: No Symptoms Cardiovascular: No Symptoms Gastrointestinal: Abdominal Pain (since yesterday) Neurological: Seizure (young age- none since) - Physical Assessment NPO Status Date: 12/16/18 NPO Status Time: 18:00 Vital Signs: Last Vital Signs Temp 97.5 F 12/16/18 22:46 Pulse 78 12/16/18 22:46 Resp 13 12/16/18 22:46 BP 100/55 L 12/16/18 22:46 Pulse Ox 100 12/16/18 22:46 Orthostatic Blood Pressure [ 107/63 Standing] Orthostatic Blood Pressure [ 101/49 Sitting] Height: 5 ft 7 in Weight: 61.235 kg ASA Class: 2E Mental Status: Alert & Oriented x3 Airway Class: Mallampati = 1 Dentition: Reports: Normal Dentition Thyro-Mental Finger Breadths: 3 Mouth Opening Finger Breadths: 3 ROM/Head Extension: Full Lungs: Clear to Auscultation, Normal Respiratory Effort Cardiovascular: Regular Rate, Regular Rhythm - Lab Values: Laboratory Last Values WBC 8.64 K/mm3 (3.98-10.04) 12/16/18 23:00 RBC 4.31 M/mm3 (3.98-5.22) 12/16/18 23:00 Hgb 13.0 gm/L (11.2-15.7) 12/16/18 23:00 Hct 37.9 % (34.1-44.9) 12/16/18 23:00 MCV 87.9 fl (79.4-94.8) 12/16/18 23:00 MCH 30.2 pg (25.6-32.2) 12/16/18 23:00 MCHC 34.3 g/dl (32.2-35.5) 12/16/18 23:00 RDW Std Deviation 38.8 fL (36.4-46.3) 12/16/18 23:00 Plt Count 253 K/mm3 (182-369) 12/16/18 23:00 MPV 9.0 fl (9.4-12.3) L 12/16/18 23:00 Neut % (Auto) 55.7 % (34.0-71.1) 12/16/18 23:00 Lymph % (Auto) 32.2 % (19.3-51.7) 12/16/18 23:00 [place] % (Auto) 9.4 % (4.7-12.5) 12/16/18 23:00 Eos % (Auto) 2.2 (0.7-5.8) 12/16/18 23:00 Baso % (Auto) 0.3 % (0.1-1.2) 12/16/18 23:00 Neut # (Auto) 4.81 K/mm3 (1.56-6.13) 12/16/18 23:00 Lymph # (Auto) 2.78 K/mm3 (1.18-3.74) 12/16/18 23:00 [place] # (Auto) 0.81 K/mm3 (0.24-0.36) H 12/16/18 23:00 Eos # (Auto) 0.19 K/mm3 (0.04-0.36) 12/16/18 23:00 Baso # (Auto) 0.03 K/mm3 (0.01-0.08) 12/16/18 23:00 PT 10.1 SECONDS (9.7-12.0) 12/16/18 23:00 INR < 0.93 12/16/18 23:00 APTT 26 SECONDS (22-31) 12/16/18 23:00 Sodium 138 mEq/L (136-145) 12/16/18 23:00 Potassium 3.5 mEq/L (3.5-5.1) 12/16/18 23:00 Chloride 102 mEq/L (98-107) 12/16/18 23:00 Carbon Dioxide 27 mEq/L (21-32) 12/16/18 23:00 Anion Gap 12.5 (5-15) 12/16/18 23:00 BUN 11 mg/dL (7-18) 12/16/18 23:00 Creatinine 0.8 mg/dL (0.55-1.02) 12/16/18 23:00 Est Cr Clr Drug Dosing 97.59 mL/min 12/16/18 23:00 Estimated GFR (MDRD) > 60 mL/min (>60) 12/16/18 23:00 BUN/Creatinine Ratio 13.8 (14-18) L 12/16/18 23:00 Glucose 108 mg/dL (74-106) H 12/16/18 23:00 Calcium 8.7 mg/dL (8.5-10.1) 12/16/18 23:00 Total Bilirubin 0.4 mg/dL (0.2-1.0) 12/16/18 23:00 AST 15 U/L (15-37) 12/16/18 23:00 ALT 17 U/L (14-59) 12/16/18 23:00 Alkaline Phosphatase 48 U/L (46-116) 12/16/18 23:00 C-Reactive Protein < 0.2 mg/dL (<1.0) 12/16/18 23:00 Total Protein 7.3 g/dl (6.4-8.2) 12/16/18 23:00 Albumin 3.6 g/dl (3.4-5.0) 12/16/18 23:00 Globulin 3.7 gm/dL 12/16/18 23:00 Albumin/Globulin Ratio 1.0 (1-2) 12/16/18 23:00 HCG, Quant 3162.0 mIU/mL 12/16/18 23:00 Urine Color Yellow (Yellow) 12/17/18 00:53 Urine Appearance Cloudy (Clear) H 12/17/18 00:53 Urine pH 6.0 (5.0-8.0) 12/17/18 00:53 Ur Specific [place] 1.025 (1.005-1.030) 12/17/18 00:53 Urine Protein Negative (Negative) 12/17/18 00:53 Urine Glucose (UA) Negative (Negative) 12/17/18 00:53 Urine Ketones Negative (Negative) 12/17/18 00:53 Urine Occult Blood Negative (Negative) 12/17/18 00:53 Urine Nitrite Positive (Negative) H 12/17/18 00:53 Urine Bilirubin Negative (Negative) 12/17/18 00:53 Urine Urobilinogen 1.0 (0.2-1.0) 12/17/18 00:53 Ur Leukocyte Esterase Negative (Negative) 12/17/18 00:53 Urine RBC 0-5 /hpf (0-5) 12/17/18 00:53 Urine WBC 0-5 /hpf (0-5) 12/17/18 00:53 Ur Squamous Epith Cells 0-5 /hpf (0-5) 12/17/18 00:53 Urine Bacteria Many /hpf (FEW) H 12/17/18 00:53 Urine Mucus Few /hpf (FEW) 12/17/18 00:53 Blood Type O NEGATIVE 12/16/18 23:00 Gel Antibody Screen Negative 12/16/18 23:00 - Allergies Allergies/Adverse Reactions: Allergies Allergy/AdvReac Type Severity Reaction Status Date / Time nitrofurantoin Allergy Rash Verified 12/16/18 22:47 [From Macrobid] nitrofurantoin Allergy Rash Verified 12/16/18 22:47 macrocrystalline [From Macrobid] Penicillins Allergy Rash Verified 12/16/18 22:47 - Blood Blood Available: No - Acknowledgements Anesthesia Type Planned: General Anesthesia Pt an Appropriate Candidate for the Planned Anesthesia: Yes Alternatives and Risks of Anesthesia Discussed w Pt/Guardian: Yes Pt/Guardian Understands and Agrees with Anesthesia Plan: Yes PreAnesthesia Questionnaire - Past Health History Medical/Surgical History: Denies Medical/Surgical History HEENT History: Reports: None Cardiovascular History: Reports: None Respiratory History: Reports: None Gastrointestinal History: Reports: None [employer] INTER[employer] History: Reports: , Spontaneous : 9 (5 weeks preg) Para: 5 Musculoskeletal History: Reports: None - Past Surgical History HEENT Surgical History: Reports: Oral Surgery Female Surgical History: Reports: Other (See Below) (laparoscopy) - SUBSTANCE USE Smoking Status *Q: Never Smoker Tobacco Use Within Last Twelve Months: No Second Hand Smoke Exposure: Yes Days Per Week of Alcohol Use: 0 Recreational Drug Use History: No - HOME MEDS Home Medications: Home Meds Vits #93/Iron Fum/FA [ Formula Tablet] 1 tab PO DAILY 12/16/18 [History] - CURRENT (IN HOUSE) MEDS Current Meds: Current Medications Hydromorphone HCl (Dilaudid) 0.5 mg IVPUSH Q2H PRN PRN Reason: Pain Last Admin: 12/17/18 03:32 Dose: 0.5 mg Lactated Ringer's (Ringers, Lactated) 1,000 mls @ 125 mls/hr IV ASDIRECTED SHASHANK Last Infusion: 12/17/18 05:55 Dose: 999 mls/hr Cefazolin Sodium/Dextrose 2 gm (/ Premix) 50 mls @ 100 mls/hr IV ONETIME ONE Stop: 12/17/18 06:30 Nalbuphine HCl (Nubain) 10 mg IVPUSH Q2H PRN PRN Reason: Pain Discontinued Medications Bupivacaine HCl (Marcaine 0.5%) Confirm Administered Dose 30 ml .ROUTE .STK-MED ONE Stop: 12/17/18 06:19 Citric Acid/Sodium Citrate (Bicitra Solution) Confirm Administered Dose 30 ml .ROUTE .STK-MED ONE Stop: 12/17/18 05:52 Citric Acid/Sodium Citrate (Bicitra Solution) 30 ml PO ONETIME ONE Stop: 12/17/18 06:02 Fentanyl (Sublimaze) Confirm Administered Dose 250 mcg .ROUTE .STK-MED ONE Stop: 12/17/18 06:14 Hydromorphone HCl (Dilaudid) 1 mg IVPUSH ONETIME ONE Stop: 12/16/18 22:56 Last Admin: 12/16/18 23:12 Dose: 1 mg Sodium Chloride (Normal Saline) 1,000 mls @ 150 mls/hr IV ASDIRECTED SHASHANK Last Admin: 12/16/18 23:10 Dose: 150 mls/hr Lidocaine HCl (Xylocaine-Mpf 1%) Confirm Administered Dose 4 mls @ as directed .ROUTE .STK-MED ONE Stop: 12/17/18 06:13 Metoclopramide HCl (Reglan) 7.5 mg IVPUSH ONETIME ONE Stop: 12/16/18 22:56 Last Admin: 12/16/18 23:10 Dose: 7.5 mg Metoclopramide HCl (Reglan) Confirm Administered Dose 10 mg .ROUTE .STK-MED ONE Stop: 12/17/18 05:53 Metoclopramide HCl (Reglan) 10 mg IVPUSH ONETIME ONE Stop: 12/17/18 06:02 Midazolam HCl (Versed 1 Mg/Ml) Confirm Administered Dose 2 mg .ROUTE .STK-MED ONE Stop: 12/17/18 06:14 Ondansetron HCl (Zofran) Confirm Administered Dose 4 mg .ROUTE .STK-MED ONE Stop: 12/17/18 06:13 Propofol (Diprivan 20 Ml) Confirm Administered Dose 200 mg .ROUTE .STK-MED ONE Stop: 12/17/18 06:14 Rocuronium [place] (Zemuron) Confirm Administered Dose 50 mg .ROUTE .STK-MED ONE Stop: 12/17/18 06:13
[2018-12-17] MEDS ORDERED: ceFAZolin 1 GM Vial ONE (06:36)
--- NOTE | 2018-12-17 06:42 | US ---
First trimester obstetrical ultrasound: Multiple real-time images were obtained both transabdominally and transvaginally. Comparison: No previous study for current . Dates: LMP: LMP given as 11/05/18, SUNIL 08/12/19, gestational age 5 weeks 6 days Current ultrasound: Too early for measurement Small intrauterine gestational sac is seen. There is a surrounding gestational reaction and yolk sac present. No pole or heart activity is seen at this time. Both maternal ovaries are seen and appear within normal limits. Debris noted within the bladder. Impression: 1. Single intrauterine gestation. pole not seen at this time, no heart activity is seen at this time. These findings are felt to be due to early . 2. Debris within the bladder. Please rule out bladder infection. 3. No other complicating process is seen. Note: Follow-up study could be considered in 11 days to confirm normal developing . Diagnostic code #3 Mostly agree with preliminary report from ad (findings within bladder as noted above), finalized on 12/17/18, 2:20 AM Central Time, code #2
[2018-12-17] MEDS ORDERED: Lactated Ringers 1,000 ML ONE (06:53)
[2018-12-17] MEDS ORDERED: fentaNYL 100 MCG/2 ML SDV IVPUSH PRN (06:58)
[2018-12-17] MEDS ORDERED: Ondansetron 4 MG/2 ML SDV IVPUSH PRN ×2 (06:58→07:23)
[2018-12-17] MEDS ORDERED: Neostigmine Methylsulfate 1 MG/ML 5 ML Syringe ONE (07:10)
[2018-12-17] MEDS ORDERED: Ketorolac 30 MG/ML SDV ONE (07:12)
[2018-12-17] MEDS ORDERED: Acetaminophen/oxyCODONE 325-5 MG Tab PO PRN (07:23)
--- NOTE | 2018-12-17 07:30 | PCM.OPNOTE ---
- General Post-Op/Procedure Note Date of Surgery/Procedure: 12/17/18 Operative Procedure(s): Laparoscopy Findings: Uterus is mildly enlarged. The fallopian tubes, ovaries, appendix, liver edge looked to be within normal. There is no evidence of ectopic , infection , torsion of the ovaries or other pathology. There was moderate amount of serous fluid in posterior cul-de-sac which was consistent with physiologic amount. Pre Op Diagnosis: 1. Left lower quadrant pelvic pain. 2. Early Post-Op Diagnosis: Same Anesthesia Technique: General ET Tube Other Anesthesia Type: Marcaine 0.5%approximately 10 mL totallocal Primary Surgeon: Grey Fair Fluid Replacement, Intraop: 500 Output, Urine Amount: 200 EBL in mLs: 5 Drain/Tube Comments:: Indwelling bladder catheter during surgery only Complications: None Condition: Good Free Text/Narrative:: Surgery duration: 16 minutes Procedure: The patient was taken to the operating room and placed in supine position on the operative table. She had sequential compression stockings in place for DVT prophylaxis and had been given 2 g of Ancef IV for infection prophylaxis. She was administered general endotracheal anesthesia. After administration of anesthesia the patient was placed in dorsal lithotomy position and prepped and draped in usual fashion. An indwelling bladder catheter was placed. Uterine manipulator was not placed because of her . Infraumbilical incision site and suprapubic site were then infiltrated with approximately 3-4 mL of Marcaine 0.5%. 5 mm incisions were made in these areas. Verres needle was placed in the infraumbilical incision site and pneumoperitoneum was established was in 2.5 L of CO2. The laparoscopic sleeve was then placed as was the scope. Under direct visualization the suprapubic site was developed with a 5 mm port. Pelvis was evaluated with findings as above. Right posterior cul-de-sac. Anatomy was felt to be unremarkable and normal. There is no evidence of wearing torsion, tubal , infection, appendicitis or other pathology. The lower sleeve having been removed under direct visualization. The upper port was removed and the incisions were closed with single subcuticular interrupted suture of 3-0 Monocryl. The incisions were further approximated with Dermabond skin glue. The Terry catheter was removed. Patient was returned to the supine position and awakened from general endotracheal anesthesia. She left the operating room in good condition.
--- NOTE | 2018-12-17 07:31 | PCM.POSTAN ---
POST ANESTHESIA ASSESSMENT - MENTAL STATUS Mental Status: Somnolent - VITAL SIGNS Vital Signs: Last Vital Signs Temp 97.5 F 12/16/18 22:46 Pulse 78 12/16/18 22:46 Resp 13 12/16/18 22:46 BP 100/55 L 12/16/18 22:46 Pulse Ox 100 12/16/18 22:46 Orthostatic Blood Pressure [ 107/63 Standing] Orthostatic Blood Pressure [ 101/49 Sitting] 0727 73 18 97.8 94% 96/52 - RESPIRATORY Respiratory Status: Respiratory Rate WNL, Airway Patent, O2 Saturation Stable, Supplemental Oxygen - CARDIOVASCULAR CV Status: Pulse Rate WNL, Blood Pressure Stable - GASTROINTESTINAL GI Status: No Symptoms - PAIN Pain Score: 0 - POST OP HYDRATION Hydration Status: Adequate & Stable
--- NOTE | 2018-12-17 08:10 | PCM48HPAN ---
Post Anesthesia Note - EVALUATION WITHIN 48HRS OF ANESTHETIC Vital Signs in Normal Range: Yes Patient Participated in Evaluation: Yes Respiratory Function Stable: Yes Airway Patent: Yes Cardiovascular Function Stable: Yes Hydration Status Stable: Yes Pain Control Satisfactory: Yes Nausea and Vomiting Control Satisfactory: Yes Mental Status Recovered: Yes Vital Signs: Last Vital Signs Temp 97.9 F 12/17/18 07:27 Pulse 78 12/16/18 22:46 Resp 18 12/17/18 08:00 BP 96/54 L 12/17/18 08:00 Pulse Ox 100 12/17/18 08:02 Orthostatic Blood Pressure [ 107/63 Standing] Orthostatic Blood Pressure [ 101/49 Sitting]
[2018-12-17 08:58] VITALS: BP 109/56
== END 2018-12-17 09:05 | disposition home or self-care (01) ==
LOC: JD.ED 22:30 → JD.OB 12-17 02:29
PROVIDERS: ADMIT Obstetrics & Gynecology; ATTEND Obstetrics & Gynecology
DX: O99.89 Other specified diseases and conditions complicating pregnancy, childbirth and the puerperium (principal); O34.81 Maternal care for other abnormalities of pelvic organs, first trimester; R10.2 Pelvic and perineal pain; N83.12 Corpus luteum cyst of left ovary; Z3A.01 Less than 8 weeks gestation of pregnancy; Z88.0 Allergy status to penicillin; Z88.1 Allergy status to other antibiotic agents; Z87.59 Personal history of other complications of pregnancy, childbirth and the puerperium
CPT/HCPCS: 36415; 49320; 76817; 80053; 81001; 84702; 85025; 85610; 85730; 86140; 86592; 86850; 86900; 86901; 87086; 87088; 87186; 96361; 96374; 96375; 96376; 99285; A9270; G0378; J0690; J1170; J1885; J2001; J2405; J2704; J2710; J2765; J3010; J3490; J7040; J7120; J2250

== ENCOUNTER 2018-12-19 21:03 | Observation (INO) | payer MEDICAID ==
--- NOTE | 2018-12-19 22:48 | EDM.PDOC ---
ED HPI GENERAL MEDICAL PROBLEM - General Chief Complaint: Abdominal Pain Stated Complaint: OB ISSUES RECENT SURGERY 7 WEEKS PREG Time Seen by Provider: 12/19/18 22:10 Source of Information: Reports: Patient, Significant Other (Boyfriend) History Limitations: Reports: No Limitations - History of Present Illness INITIAL COMMENTS - FREE TEXT/NARRATIVE: Ms. Anne is a 33-year-old woman, G9 P 5035, who was seen in this ED on 12/17/2018 with severe left lower quadrant abdominal pain that had begun just about half an hour DUCT LAYER. She was known to be , with an LMP of 11/05/2018 (= 6 weeks 2 days by dates, today). She had no genitourinary complaints, and denied any vaginal bleeding. She was found to be hemodynamically stable, afebrile. Workup included a CBC, CMP, CRP, coags, quantitative hCG, blood type, urinalysis, and a transvaginal ultrasound. Her CBC , CMP, CRP, and coags were unremarkable. Her quantitative hCG returned at 3162. Her blood type is O-NEG. Her urinalysis was remarkable for nitrite positive and many bacteria, but leukocyte esterase negative and 0-5 WBCs. Her transvaginal ultrasound found a single intrauterine gestation without pole or heart activity, consistent with early . Debris was noted in the bladder, but no other abnormalities were found. The patient was evaluated by Dr. Fair in the ED, and the patient was subsequently placed into observation. Dr. Fair then took the patient to the OR the same day for exploratory laparoscopy, where the uterus was found to be mildly enlarged, but the fallopian tubes, ovaries, appendix, and liver edge appeared to be normal. There was no evidence of an ectopic , infection, torsion of the ovaries, or other pathology. There was a physiologic amount of fluid in the posterior cul-de-sac. The patient states that she was then discharged home that same day with a prescription for Percocet 5/325. 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 The patient now returns to the ED stating that she continues to have the same left lower quadrant pain, and appears to be angry that the cause of her pain has not been found. She has not developed any other symptoms, such as fever, nausea, vomiting, constipation, diarrhea, or urinary symptoms. She states that she took 2 tablets of Percocet around 18:00 this evening, prior to coming to the ED. The patient's PCP is Candice Rivas NP. Her NEGOTIATIONS DIRECTOR is Dr. Grey Fair. Left Abdominal Pain Score (Numeric/FACES): 7 - Related Data Allergies Allergy/AdvReac Type Severity Reaction Status Date / Time nitrofurantoin Allergy Rash Verified 12/16/18 22:47 [From Macrobid] nitrofurantoin Allergy Rash Verified 12/16/18 22:47 macrocrystalline [From Macrobid] Penicillins Allergy Rash Verified 12/16/18 22:47 Home Meds: Home Meds Vits #93/Iron Fum/FA [ Formula Tablet] 1 tab PO DAILY 12/16/18 [History] oxyCODONE HCl/Acetaminophen [Percocet 5-325 mg Tablet] 1 tab PO Q6H PRN [History] Past Medical History NEGOTIATIONS DIRECTOR History: Reports: , Spontaneous (x 3), Other (See Below ) (Ovarian cyst) : 9 Para: 5 - Past Surgical History HEENT Surgical History: Reports: Oral Surgery (wisdom teeth extraction) Female Surgical History: Reports: Other (See Below) (Cervical cone biopsy. Exploratory laparoscopy for ovarian cyst around 2012. 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 ED EXAM - Physical Exam Exam: See Below Exam Limited By: No Limitations General Appearance: Alert, WD/WN, No Apparent Distress Eye Exam: Bilateral Eye: EOMI, Normal Inspection Ears: Normal External Exam, Hearing Grossly Normal Nose: Normal Inspection Throat/Mouth: Normal Inspection, Normal Lips, Normal Voice, No Airway Compromise Head: Atraumatic, Normocephalic Neck: Normal Inspection, Full Range of Motion Respiratory/Chest: No Respiratory Distress, Lungs Clear, Normal Breath Sounds, No Accessory Muscle Use Cardiovascular: Normal Peripheral Pulses, Regular Rate, Rhythm, No Edema, No Gallop, No JVD, No Murmur, No Rub GI/Abdominal Exam: Normal Bowel Sounds, Soft, No Organomegaly, No Distention, No Abnormal Bruit, No Mass, Tender (Otherwise, non-focal, including to the left lower quadrant, however, there is increased tenderness over the periumbilical laparoscopic surgical wound) Rectal Exam: Deferred Back Exam: Normal Inspection, Full Range of Motion, NT Extremities: Normal Inspection, Normal Range of Motion, No Pedal Edema, Normal Capillary Refill Neurological: Alert, Oriented, Normal Cognition, No Motor/Sensory Deficits Skin Exam: Warm, Dry, Intact, Normal Color, No Rash Course - Vital Signs Last Recorded V/S: Last Vital Signs Temp 36.4 C 12/19/18 21:33 Pulse 58 L 12/19/18 21:33 Resp 20 12/19/18 21:33 BP 102/48 L 12/19/18 21:33 Pulse Ox 100 12/19/18 21:33 - Orders/Labs/Meds Orders: Active Orders 24 hr Category Date Time Status CBC WITH MANUAL DIFF [HEME] Stat Lab 12/19/18 22:49 Ordered COMPREHENSIVE METABOLIC PN,CMP [CHEM] Stat Lab 12/19/18 22:49 Ordered UA W/MICROSCOPIC [URIN] Stat Lab 12/19/18 22:49 Ordered Sodium Chloride 0.9% [Normal Saline] 1,000 ml Med 12/19/18 23:00 Active IV ASDIRECTED Medication Orders Sodium Chloride (Normal Saline) 1,000 mls @ 100 mls/hr IV ASDIRECTED [facility] Meds: Medications Generic Name Dose Route Start Last Admin Trade Name Freq PRN Reason Stop Dose Admin Sodium Chloride 1,000 mls @ 100 mls/hr 12/19/18 23:00 Normal Saline IV ASDIRECTED SHASHANK Discontinued Medications Generic Name Dose Route Start Last Admin Trade Name Freq PRN Reason Stop Dose Admin Hydromorphone HCl 0.5 mg 12/19/18 22:51 Dilaudid IVPUSH 12/19/18 22:52 ONETIME ONE Ondansetron HCl 4 mg 12/19/18 22:51 Zofran IVPUSH 12/19/18 22:52 ONETIME ONE - Re-Assessments/Exams Free Text/Narrative Re-Assessment/Exam: 12/19/18 22:39 The patient appears to be angry that her pain has persisted and that the cause hasn't been found, and she would like me to find the cause of her pain and treat it. Unfortunately, though, since the patient just underwent laparoscopy to find the source of her pain, and no source was found, I am not sure what else I can offer from the emergency department. A CT scan of the abdomen and pelvis is certainly not indicated, nor a repeat ultrasound, and blood work, even if abnormal, will not shed any light as to the source of her pain. Case discussed with Dr. Johnson at 22:32. She does not have any ideas as to what I can do, either. We agreed that we will place the patient into observation , where she can be given some Dilaudid, Zofran, and IV fluid. I will order a CBC , CMP, quantitative hCG, a urinalysis, and a GC/Chlamydia by PCR, just to make sure that there are no significant abnormalities that need to be addressed. 12/19/18 22:47 The above plan was discussed with the patient and her boyfriend. She agrees to being placed into observation. Departure - Departure Time of Disposition: 22:48 Disposition: Refer to Observation Condition: Good Clinical Impression: Discomfort during - Discharge Information *PRESCRIPTION DRUG MONITORING PROGRAM REVIEWED*: Not Applicable *COPY OF PRESCRIPTION DRUG MONITORING REPORT IN PATIENT SADE: Not Applicable Referrals: Grey Fair MD [Primary Care Provider] - Candice Rivas NP [Nurse Practitioner] - - My Orders Last 24 Hours: My Active Orders 12/19/18 22:49 CBC WITH MANUAL DIFF [HEME] Stat COMPREHENSIVE METABOLIC PN,CMP [CHEM] Stat UA W/MICROSCOPIC [URIN] Stat 12/19/18 23:00 Sodium Chloride 0.9% [Normal Saline] 1,000 ml IV ASDIRECTED - Assessment/Plan Last 24 Hours: My Active Orders 12/19/18 22:49 CBC WITH MANUAL DIFF [HEME] Stat COMPREHENSIVE METABOLIC PN,CMP [CHEM] Stat UA W/MICROSCOPIC [URIN] Stat 12/19/18 23:00 Sodium Chloride 0.9% [Normal Saline] 1,000 ml IV ASDIRECTED
[2018-12-19] MEDS ORDERED: HYDROmorphone 0.5 MG/0.5 ML Syringe IVPUSH ONE (22:51)
[2018-12-19] MEDS ORDERED: Ondansetron 4 MG/2 ML SDV IVPUSH ONE (22:51)
[2018-12-19] MEDS ORDERED: Sodium Chloride 0.9% 1,000 ML IV SCH (23:00)
[2018-12-19] MEDS ORDERED: HYDROmorphone 0.5 MG/0.5 ML Syringe IVPUSH PRN (23:33)
[2018-12-19] MEDS ORDERED: Ondansetron 4 MG/2 ML SDV IVPUSH PRN (23:35)
[2018-12-20] MEDS: Acetaminophen/oxyCODONE 325-5 MG Tab PO SCH ×2 (00:06→06:01)
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
--- NOTE | 2018-12-20 08:40 | PCM.DCSUM1 ---
Discharge Summary - Hospital Course Brief History: Admitted for pain control, did well overnight Diagnosis: Stroke: No - Discharge Data Discharge Date: 12/20/18 Discharge Disposition: Home, Self-Care 01 Condition: Good - Patient Summary/Data Hospital Course: Admitted for pain. Used no dilaudid after ER. Slept comfortably - Patient Instructions Diet: Usual Diet as Tolerated Activity: No Strenuous Activities Driving: May Drive Today Showering/Bathing: May Shower Notify Provider of: Fever, Increased Pain, Swelling and Redness, Nausea and/or Vomiting - Discharge Plan *PRESCRIPTION DRUG MONITORING PROGRAM REVIEWED*: Not Applicable *COPY OF PRESCRIPTION DRUG MONITORING REPORT IN PATIENT SADE: Not Applicable Home Medications: Home Meds Vits #93/Iron Fum/FA [ Formula Tablet] 1 tab PO DAILY 12/16/18 [History] oxyCODONE HCl/Acetaminophen [Percocet 5-325 mg Tablet] 1 tab PO Q6H PRN [History] Referrals: Grey Fair MD [Primary Care Provider] - Candice Rivas NP [Nurse Practitioner] - - Discharge Summary/Plan Comment DC Time >30 min.: Yes - General Info Date of Service: 12/20/18 Functional Status: Reports: Pain Controlled - Review of Systems General: Reports: No Symptoms HEENT: Reports: No Symptoms Pulmonary: Reports: No Symptoms Cardiovascular: Reports: No Symptoms Gastrointestinal: Reports: No Symptoms Genitourinary: Reports: No Symptoms Musculoskeletal: Reports: No Symptoms Skin: Reports: No Symptoms Neurological: Reports: No Symptoms Psychiatric: Reports: No Symptoms - Patient Data Vitals - Most Recent: Last Vital Signs Temp 36.8 C 12/20/18 05:59 Pulse 56 L 12/20/18 05:59 Resp 15 12/20/18 05:59 BP 98/45 L 12/20/18 05:59 Pulse Ox 100 12/20/18 05:59 Weight - Most Recent: 61.235 kg Lab Results - Last 24 hrs: Laboratory Results - last 24 hr 12/19/18 12/19/18 12/19/18 Range/Units 22:49 22:55 22:55 WBC 6.84 (3.98-10.04) K/mm3 RBC 4.02 (3.98-5.22) M/mm3 Hgb 12.0 (11.2-15.7) gm/L Hct 35.8 (34.1-44.9) % MCV 89.1 (79.4-94.8) fl MCH 29.9 (25.6-32.2) pg MCHC 33.5 (32.2-35.5) g/dl RDW Std Deviation 38.3 (36.4-46.3) fL Plt Count 227 (182-369) K/mm3 MPV 9.1 L (9.4-12.3) fl Neutrophils % (Manual) 50 (40-60) % Band Neutrophils % 0 (0-10) % Lymphocytes % (Manual) 41 H (20-40) % Atypical Lymphs % 0 % Monocytes % (Manual) 5 (2-10) % Eosinophils % (Manual) 1 (0.7-5.8) % Basophils % (Manual) 3 H (0.1-1.2) Platelet Estimate Adequate Plt Morphology Comment Normal RBC Morph Comment Normal Sodium 138 (136-145) mEq/L Potassium 3.2 L (3.5-5.1) mEq/L Chloride 104 (98-107) mEq/L Carbon Dioxide 28 (21-32) mEq/L Anion Gap 9.2 (5-15) BUN 10 (7-18) mg/dL Creatinine 0.8 (0.55-1.02) mg/dL Est Cr Clr Drug Dosing 97.59 mL/min Estimated GFR (MDRD) > 60 (>60) mL/min BUN/Creatinine Ratio 12.5 L (14-18) Glucose 103 (74-106) mg/dL Calcium 8.6 (8.5-10.1) mg/dL Total Bilirubin 0.4 (0.2-1.0) mg/dL AST 11 L (15-37) U/L ALT 18 (14-59) U/L Alkaline Phosphatase 42 L (46-116) U/L Total Protein 6.9 (6.4-8.2) g/dl Albumin 3.3 L (3.4-5.0) g/dl Globulin 3.6 gm/dL Albumin/Globulin Ratio 0.9 L (1-2) HCG, Quant mIU/mL Urine Color Yellow (Yellow) Urine Appearance Clear (Clear) Urine pH 6.0 (5.0-8.0) Ur Specific [place] 1.020 (1.005-1.030) Urine Protein Negative (Negative) Urine Glucose (UA) Negative (Negative) Urine Ketones Negative (Negative) Urine Occult Blood Negative (Negative) Urine Nitrite Positive H (Negative) Urine Bilirubin Negative (Negative) Urine Urobilinogen 1.0 (0.2-1.0) Ur Leukocyte Esterase Negative (Negative) Urine RBC 0-5 (0-5) /hpf Urine WBC 0-5 (0-5) /hpf Ur Epithelial Cells 0-5 (0-5) /hpf Urine Bacteria Many H (FEW) /hpf Urine Mucus Few (FEW) /hpf Urine Yeast (Budding) Rare H (NOT SEEN) 12/19/18 Range/Units 22:55 WBC (3.98-10.04) K/mm3 RBC (3.98-5.22) M/mm3 Hgb (11.2-15.7) gm/L Hct (34.1-44.9) % MCV (79.4-94.8) fl MCH (25.6-32.2) pg MCHC (32.2-35.5) g/dl RDW Std Deviation (36.4-46.3) fL Plt Count (182-369) K/mm3 MPV (9.4-12.3) fl Neutrophils % (Manual) (40-60) % Band Neutrophils % (0-10) % Lymphocytes % (Manual) (20-40) % Atypical Lymphs % % Monocytes % (Manual) (2-10) % Eosinophils % (Manual) (0.7-5.8) % Basophils % (Manual) (0.1-1.2) Platelet Estimate Plt Morphology Comment RBC Morph Comment Sodium (136-145) mEq/L Potassium (3.5-5.1) mEq/L Chloride (98-107) mEq/L Carbon Dioxide (21-32) mEq/L Anion Gap (5-15) BUN (7-18) mg/dL Creatinine (0.55-1.02) mg/dL Est Cr Clr Drug Dosing mL/min Estimated GFR (MDRD) (>60) mL/min BUN/Creatinine Ratio (14-18) Glucose (74-106) mg/dL Calcium (8.5-10.1) mg/dL Total Bilirubin (0.2-1.0) mg/dL AST (15-37) U/L ALT (14-59) U/L Alkaline Phosphatase (46-116) U/L Total Protein (6.4-8.2) g/dl Albumin (3.4-5.0) g/dl Globulin gm/dL Albumin/Globulin Ratio (1-2) HCG, Quant 4235.0 mIU/mL Urine Color (Yellow) Urine Appearance (Clear) Urine pH (5.0-8.0) Ur Specific [place] (1.005-1.030) Urine Protein (Negative) Urine Glucose (UA) (Negative) Urine Ketones (Negative) Urine Occult Blood (Negative) Urine Nitrite (Negative) Urine Bilirubin (Negative) Urine Urobilinogen (0.2-1.0) Ur Leukocyte Esterase (Negative) Urine RBC (0-5) /hpf Urine WBC (0-5) /hpf Ur Epithelial Cells (0-5) /hpf Urine Bacteria (FEW) /hpf Urine Mucus (FEW) /hpf Urine Yeast (Budding) (NOT SEEN) Med Orders - Current: Current Medications Hydromorphone HCl (Dilaudid) 0.5 mg IVPUSH Q2H PRN PRN Reason: Pain Sodium Chloride (Normal Saline) 1,000 mls @ 100 mls/hr IV ASDIRECTED [facility] Last Admin: 12/19/18 23:03 Dose: 100 mls/hr Ondansetron HCl (Zofran) 4 mg IVPUSH Q6H PRN PRN Reason: Nausea Oxycodone/Acetaminophen (Percocet 325-5 Mg) 2 tab PO Q6H [facility] Last Admin: 12/20/18 06:01 Dose: 2 tab Discontinued Medications Hydromorphone HCl (Dilaudid) 0.5 mg IVPUSH ONETIME ONE Stop: 12/19/18 22:52 Last Admin: 12/19/18 23:03 Dose: 0.5 mg Ondansetron HCl (Zofran) 4 mg IVPUSH ONETIME ONE Stop: 12/19/18 22:52 Last Admin: 12/19/18 23:03 Dose: 4 mg - Exam General: Reports: Alert, Oriented HEENT: Reports: Pupils Equal, Pupils Reactive, EOMI, Mucous Membr. Moist/[place] Neck: Reports: Supple Lungs: Reports: Clear to Auscultation, Normal Respiratory Effort Cardiovascular: Reports: Regular Rate, Regular Rhythm GI/Abdominal Exam: Normal Bowel Sounds, Soft, Non-Tender, No Organomegaly, No Distention, No Abnormal Bruit, No Mass, Pelvis Stable Rectal (Female) Exam: Normal Exam, Normal Rectal Tone Back Exam: Reports: Normal Inspection, Full Range of Motion Extremities: Normal Inspection, Normal Range of Motion, Non-Tender, No Pedal Edema, Normal Capillary Refill Skin: Reports: Warm, Dry, Intact Wound/Incisions: Reports: Healing Well Neurological: Reports: No New Focal Deficit Psy/Mental Status: Reports: Alert, Normal Affect, Normal Mood
[2018-12-20 09:06] VITALS: BP 99/49
== END 2018-12-20 09:05 | disposition home or self-care (01) ==
LOC: JD.ED 21:03 → JD.OB 23:07
PROVIDERS: ADMIT Obstetrics & Gynecology; ATTEND Obstetrics & Gynecology
DX: O99.89 Other specified diseases and conditions complicating pregnancy, childbirth and the puerperium (principal); R10.32 Left lower quadrant pain; Z3A.01 Less than 8 weeks gestation of pregnancy; Z88.0 Allergy status to penicillin; Z88.1 Allergy status to other antibiotic agents; Z87.59 Personal history of other complications of pregnancy, childbirth and the puerperium; Z79.899 Other long term (current) drug therapy
CPT/HCPCS: 36415; 80053; 81001; 84702; 85007; 85027; 96374; 96375; 99284; A9270; J1170; J2405; J7040; 96361; G0378

== ENCOUNTER 2019-01-02 09:39 | Day surgery (SDC) | payer MEDICAID ==
[2019-01-02] MEDS ORDERED: Lidocaine 1%/Sod Bicarbonate in NS 8.4% 1 ML Syringe IDERM PRN (10:25)
[2019-01-02] MEDS ORDERED: Sodium Chloride 0.9% 10 ML Syringe FLUSH PRN (10:25)
[2019-01-02] MEDS ORDERED: Lactated Ringers 1,000 ML IV SCH (10:30)
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
[2019-01-02] MEDS ORDERED: Midazolam 1 MG/ML 2 ML SDV ONE (11:05)
[2019-01-02] MEDS ORDERED: Propofol 200 MG/20 ML SDV ONE (11:05)
[2019-01-02] MEDS ORDERED: Lidocaine 1% 4 ML ONE (11:05)
[2019-01-02] MEDS ORDERED: fentaNYL 100 MCG/2 ML SDV ONE (11:05)
[2019-01-02] MEDS ORDERED: Ketorolac 15 MG/ML SDV ONE (11:06)
[2019-01-02] MEDS ORDERED: Ondansetron 4 MG/2 ML SDV ONE (11:06)
[2019-01-02] MEDS ORDERED: ceFAZolin 1 GM Vial ONE (12:57)
[2019-01-02] MEDS ORDERED: Dexamethasone 4 MG/ML 5 ML MDV ONE (12:59)
--- NOTE | 2019-01-02 13:28 | PCM48HPAN ---
Post Anesthesia Note - EVALUATION WITHIN 48HRS OF ANESTHETIC Vital Signs in Normal Range: Yes Patient Participated in Evaluation: Yes Respiratory Function Stable: Yes Airway Patent: Yes Cardiovascular Function Stable: Yes Hydration Status Stable: Yes Pain Control Satisfactory: Yes Nausea and Vomiting Control Satisfactory: Yes Mental Status Recovered: Yes Vital Signs: Last Vital Signs Temp 37.1 C 01/02/19 13:13 Pulse 102 H 01/02/19 13:13 Resp 15 01/02/19 13:13 BP 107/64 01/02/19 13:13 Pulse Ox 96 01/02/19 13:13
[2019-01-02] MEDS ORDERED: Ondansetron 4 MG/2 ML SDV IVPUSH PRN (13:31)
[2019-01-02] MEDS ORDERED: Ibuprofen 600 MG Tab PO PRN (13:31)
--- NOTE | 2019-01-02 13:38 | PCM.OPNOTE ---
- General Post-Op/Procedure Note Date of Surgery/Procedure: 01/02/19 Operative Procedure(s): Dilation and suction curettage Findings: Uterus sounded to 9-1/2 cm. Cervix is closed. No bleeding was noted. The contents removed with suction curettage were consistent with products of conception. Pre Op Diagnosis: Miscarriage Post-Op Diagnosis: Same Anesthesia Technique: MAC Primary Surgeon: Grey Fair Secondary Surgeon: Margarita Austin Anesthesia Provider: Wanda Diaz Pathology: Endometrial curettings consistent with products of conception Fluid Replacement, Intraop: 800 EBL in mLs: 5 Complications: None Condition: Good Free Text/Narrative:: Surgery duration: 2 minutes. The patient was taken to the operating room and placed in a supine position operating table. She received 2 g of Ancef preoperatively for infection prophylaxis and had sequential compression stockings in place for DVT prophylaxis. After adequate MAC anesthesia patient was placed in a dorsal lithotomy position. A weighted speculum was placed in the vagina. Cervix was dilated to approximately 7 mm allow entrance of suction curette. Uterus was sounded to approximately 9-1/2 cm. It was found to be anterior and mid position. An 7 mm suction curette was then introduced in routine fashion the endometrial cavity was evacuated. Moderate amount tissue was obtained. Findings consistent with products of conception. A medium size sharp curet was introduced and very careful fashion the endometrial cavity was curetted. It was be clear of any further tissue. The suction curet was then reintroduced and small and blood was removed. No further tissue was removed. This point the D&C was discontinued. The single-toothed tenaculum used to stabilize the anterior lip the cervix was removed. Blood was removed from the vagina with a stick sponge and the weighted speculum was removed from the vagina. The patient was awakened from LMA anesthesia. The patient was discharged from the operating room in good condition.
[2019-01-02 14:00] VITALS: BP 97/59; PULSE 61
== END 2019-01-02 14:45 | disposition home or self-care (01) ==
LOC: JD.SDS 09:39
PROVIDERS: ATTEND Obstetrics & Gynecology
DX: O03.4 Incomplete spontaneous abortion without complication (principal); Z88.0 Allergy status to penicillin; Z88.1 Allergy status to other antibiotic agents; Z79.899 Other long term (current) drug therapy
CPT/HCPCS: 36415; 59812; 85025; 85461; 86850; 86900; 86901; J0690; J1100; J1885; J2001; J2250; J2405; J2704; J2790; J3010; J7120; 01965

== ENCOUNTER 2019-05-24 11:04 | Emergency (ER) | payer BC ==
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
--- NOTE | 2019-05-24 12:58 | US ---
Obstetrical ultrasound: Multiple real-time images were obtained transabdominally. Comparison: No previous study for current . Dates: LMP: LMP given as 02/26/19, SUNIL 12/03/19, gestational age 12 weeks 3 days Current ultrasound: SUNIL 11/28/19, gestational age 13 weeks 1 day Single intrauterine fetus is seen. Amniotic fluid volume is normal. No subchorionic hemorrhage is seen. Small collapsing corpus luteum cyst is noted within the maternal left ovary measuring 2.2 cm. Maternal right ovary is unremarkable. Measurements: [place]-rump length: 6.80 cm - 13 weeks 1 day Heart rate: 154 bpm Impression: 1. Single intrauterine fetus. Dates as noted above. 2. No complicating process is identified on ultrasound study at this time. Diagnostic code #1 This report was dictated in [place] Standard Time
[2019-05-24] MEDS ORDERED: Magnesium Citrate Solution 296 ML Bottle PO ONE (13:03)
[2019-05-24 13:12] VITALS: BP 96/71; PULSE 78
== END 2019-05-24 13:17 | disposition home or self-care (01) ==
LOC: JD.ED 11:04
DX: O99.611 Diseases of the digestive system complicating pregnancy, first trimester (principal); K59.09 Other constipation; Z88.1 Allergy status to other antibiotic agents; Z88.0 Allergy status to penicillin; Z3A.11 11 weeks gestation of pregnancy
CPT/HCPCS: 36415; 76801; 84702; 85025; 86900; 86901; 99284; A9270; 99282

== ENCOUNTER 2020-12-07 01:24 | Inpatient (IN) | payer BC ==
[2020-12-07] MEDS ORDERED: Acetaminophen 325 MG Tab PO PRN ×2 (01:33→05:04)
[2020-12-07] MEDS ORDERED: Ondansetron 4 MG/2 ML SDV IVPUSH PRN (01:33)
[2020-12-07] MEDS ORDERED: Lidocaine 1% 50 ML MDV INJECT ONE (01:33)
[2020-12-07] MEDS ORDERED: Sodium Chloride 0.9% 10 ML Syringe FLUSH PRN (01:33)
[2020-12-07] MEDS ORDERED: Nalbuphine 10 MG/1 ML Vial IVPUSH PRN (01:33)
[2020-12-07] MEDS ORDERED: Lactated Ringers 1,000 ML IV SCH (01:45)
[2020-12-07] MEDS ORDERED: Oxytocin/Lactated Ringers 10 UNIT/1,000 ML BAG IV SCH (01:45)
--- NOTE | 2020-12-07 02:24 | PCM.SN.2 ---
- Free Text/Narrative Note: Stage I/Stage III - patient presented with SROM. Was 9 cm. I was called at 137. Rapid of viable male with compound arm to the nurse with Dr. Graham in the room in attendance. Cord clamped and cut and cord blood collected. Delivery at 146 with 9/9 apgars. Stage III- of intact placenta, 3v cord. No laceration. EBL 300. I was presented for and participated in [place] portions of procedure with delivery of placenta and arrival at 139 immediately post baby.
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
[2020-12-07] MEDS ORDERED: Witch Hazel Medicated Pads 40/Jar TOP PRN (05:04)
[2020-12-07] MEDS ORDERED: Docusate Sodium 100 MG Cap PO PRN (05:04)
[2020-12-07] MEDS ORDERED: Benzocaine/Menthol 20%-0.5% Spray 56 GM Canister TOP PRN (05:04)
[2020-12-07] MEDS: Ibuprofen 600 MG Tab PO PRN ×3 (06:01→22:00)
--- NOTE | 2020-12-08 08:25 | PCM.SN.2 ---
- Free Text/Narrative Note: Post Progress Note PPD #1 Subjective: Doing well overall. Ambulating without difficulty. Lochia minimal. Voiding without difficulty. Tolerating regular diet without nausea or vomiting. Pain controlled with oral medications. Breast and bottlefeeding with minimal difficulty. Objective: Vitals: Vital Signs - 24 hr 12/07/20 12/07/20 12/07/20 08:32 14:39 20:13 Temperature 36.8 C 36.8 C 37.2 C Pulse, 58 L 76 74 Peripheral Respiratory 14 14 16 Rate Blood Pressure 116/77 108/72 110/72 O2 Sat by Pulse 96 96 98 Oximetry 12/08/20 05:35 Temperature 36.8 C Pulse, 58 L Peripheral Respiratory 14 Rate Blood Pressure 103/57 L O2 Sat by Pulse 96 Oximetry Physical Exam General: Alert and oriented, no acute distress Lungs: Clear to auscultation bilaterally Heart: Regular rate and rhythm Abdomen: Soft, minimal appropriate tenderness, non-distended, fundus midline, nontender, and at the umbilicus Extremities: No edema in bilateral lower extremities, no calf tenderness bilaterally Laboratory Results - last 24 hr 12/07/20 12/07/20 Range/Units 02:10 09:42 RPR Non-reactive (NONREACTIVE) Blood Type Cancelled Gel Antibody Screen Cancelled Screen 0 ros/5 flds - neg RhIG Candidate? Yes Rhogam Indicated Cancelled ASSESSMENT: 35-year-old female G 10 P 6-1-3-7 s/p precipitous vaginal delivery PPD #1, complicated by A2 gestational diabetes controlled with Metformin and Rh- status in PLAN: Doing well Breast and bottlefeeding with minimal difficulty. Assist as needed Lochia minimal. Continue to monitor for appropriate lochia. Continue routine care Patient to discontinue Metformin at this time Patient with O- blood type and infant with A+ blood type. RhoGam not indicated Anticipate discharge home today Keagan Hill MD 8:25 AM 12/08/2020
--- NOTE | 2020-12-08 08:42 | PCM.DCSUM1 ---
Discharge Summary - Hospital Course Free Text/Narrative:: Stage I/Stage III - patient presented with SROM. Was 9 cm. I was called at 137. Rapid of viable male with compound arm to the nurse with Dr. Graham in the room in attendance. Cord clamped and cut and cord blood collected. Delivery at 146 with 9/9 apgars. Stage III- of intact placenta, 3v cord. No laceration. EBL 300. I was presented for and participated in payton portions of procedure with delivery of placenta and arrival at 139 immediately post baby. Diagnosis: Stroke: No - Discharge Data Discharge Date: 12/08/20 Discharge Disposition: Home, Self-Care 01 Condition: Good - Referral to Home Health Primary Care Physician: Grey Fair MD - Discharge Diagnosis/Problem(s) (1) 38 weeks gestation of SNOMED Code(s): 54684651 ICD Code: Z3A.38 - 38 WEEKS GESTATION OF Status: Acute Current Visit: Yes (2) Vaginal delivery SNOMED Code(s): 329132393 ICD Code: O80 - ENCOUNTER FOR FULL-TERM UNCOMPLICATED DELIVERY Status: Acute Current Visit: No (3) Oral hypoglycemic controlled White classification A2 gestational diabetes mellitus (GDM) SNOMED Code(s): 81800220 ICD Code: O24.415 - GESTATNL DIABETES IN PREG, CTRL BY ORAL HYPOGLYCEMIC RIDGE GS Status: Acute Current Visit: Yes (4) Rh negative status during SNOMED Code(s): 810550105 ICD Code: O26.899 - OTH RELATED CONDITIONS, UNSPECIFIED TRIMESTER; Z67.91 - UNSPECIFIED BLOOD TYPE, RH NEGATIVE Status: Acute Current Visit: Yes - Patient Summary/Data Complications: Precipitous vaginal delivery performed by RN Consults: None Hospital Course: Jolene Scherer was admitted for advanced stage of labor. On admission her cervix was dilated to 9 cm. She was GBS negative. She rapidly progressed to complete and began pushing. On 12/07/2020 she had a precipitous vaginal delivery of a live male at 01:46 by the RN in attendance. Apgars of 9 and 9. Weight of 3629 g (8 pounds 0 ounces). The delivery of the placenta was performed by Dr. Johnson. Her course was uneventful. Her pain was well controlled and she had minimal lochia. She was ambulating, tolerating a regular diet and voiding normally. She was breast and bottlefeeding with minimal difficulty. She was afebrile and her hematocrit was 37.0 on PPD #0 approximately 30 minutes after delivery. She desired to be discharged home on the morning of PPD #1. Her her blood type is O- and infant has a positive blood type. She received 1 dose of RhoGam on PPD #0. - Patient Instructions Diet: Regular Diet as Tolerated Activity: Apply Ice, As Tolerated Activity, Other: Nothing in the vagina for 6 weeks Driving: May Drive Today Showering/Bathing: May Shower Notify Provider of: Fever, Increased Pain, Swelling and Redness, Drainage, Nausea and/or Vomiting Other/Special Instructions: Please contact your physician's office if you have heavy vaginal bleeding enough to soak a pad in less than an hour for several hours. Monitor for any signs of an infection in the breasts with severe pain or redness of the breast. - Discharge Plan *PRESCRIPTION DRUG MONITORING PROGRAM REVIEWED*: Not Applicable *COPY OF PRESCRIPTION DRUG MONITORING REPORT IN PATIENT SADE: Not Applicable Home Medications: Home Meds Vits #93/Iron Fum/FA [ Formula Tablet] 1 tab PO DAILY 12/16/18 [History] Acetaminophen [Tylenol] 650 mg PO Q6H PRN tablet 12/08/20 [Rx] Benzocaine/Menthol [Dermoplast Pain Relief [place]] 1 spray TOP ASDIRECTED PRN c anister 12/08/20 [Rx] Docusate Sodium [Colace] 100 mg PO BID PRN cap 12/08/20 [Rx] Ibuprofen [Motrin] 600 mg PO Q6H PRN tablet 12/08/20 [Rx] witch Raheem [Tucks] 1 pad TOP ASDIRECTED PRN pad 12/08/20 [Rx] Patient Handouts: Care After Vaginal Delivery Referrals: Grey Fair MD [Primary Care Provider] - (Follow-up in 2 to 3 weeks for routine visit or earlier as needed.) - Discharge Summary/Plan Comment DC Time >30 min.: No Total # of Minutes for Discharge Time: 20 - Patient Data Vitals - Most Recent: Last Vital Signs Temp 36.8 C 12/08/20 05:35 Pulse 58 L 12/08/20 05:35 Resp 14 12/08/20 05:35 BP 103/57 L 12/08/20 05:35 Pulse Ox 96 12/08/20 05:35 Weight - Most Recent: 76.204 kg Lab Results - Last 24 hrs: Laboratory Results - last 24 hr 12/07/20 12/07/20 Range/Units 02:10 09:42 RPR Non-reactive (NONREACTIVE) Blood Type Cancelled Gel Antibody Screen Cancelled Screen 0 ros/5 flds - neg RhIG Candidate? Yes Rhogam Indicated Cancelled Med Orders - Current: Current Medications Acetaminophen (Acetaminophen 325 Mg Tab) 650 mg PO Q4H PRN PRN Reason: mild pain or fever Benzocaine/Menthol (Benzocaine/Menthol 20%-0.5% [place] 56 Gm Canister) 0 gm TOP ASDIRECTED PRN PRN Reason: Perineal Comfort Measure Docusate Sodium (Docusate Sodium 100 Mg Cap) 100 mg PO BID PRN PRN Reason: Constipation Ibuprofen (Ibuprofen 600 Mg Tab) 600 mg PO Q6H PRN PRN Reason: Mild pain or fever Last Admin: 12/07/20 22:00 Dose: 600 mg Documented by: Raman Vera (Raman Vera Medicated Pads 40/Jar) 1 pad TOP ASDIRECTED PRN PRN Reason: Perineal Comfort Measure Last Admin: 12/07/20 06:00 Dose: 1 tub Documented by: Discontinued Medications Acetaminophen (Acetaminophen 325 Mg Tab) 650 mg PO Q4H PRN PRN Reason: Pain (Mild 1-3) and fever Oxytocin/Lactated Ringer's (Pitocin In Lr 10 Units/1,000 Ml) 10 unit in 1,000 mls @ 500 mls/hr IV .CONTINUOUS SHASHANK Last Admin: 12/07/20 06:02 Dose: 500 mls/hr Documented by: Lactated Ringer's (Ringers, Lactated) 1,000 mls @ 100 mls/hr IV ASDIRECTED SHASHANK Lidocaine HCl (Lidocaine 1% 50 Ml Mdv) 20 ml INJECT ONETIME ONE Stop: 12/07/20 01:34 Last Admin: 12/07/20 20:03 Dose: Not Given Documented by: Nalbuphine HCl (Nalbuphine 10 Mg/1 Ml Vial) 10 mg IVPUSH Q2H PRN PRN Reason: Pain Ondansetron HCl (Ondansetron 4 Mg/2 Ml Sdv) 4 mg IVPUSH Q4H PRN PRN Reason: Nausea/Vomiting Sodium Chloride (Sodium Chloride 0.9% 10 Ml Syringe) 10 ml FLUSH ASDIRECTED PRN PRN Reason: Keep Vein Open
[2020-12-08 10:07] VITALS: BP 105/70; PULSE 79
== END 2020-12-08 09:55 | disposition home or self-care (01) | DRG 560 ==
LOC: JD.OBCHECK 01:24 → JD.OB 01:27 → JD.OBCHECK 01:33 → JD.OB 01:34 → OBSVTOIN 01:46
PROVIDERS: ADMIT Obstetrics & Gynecology; ATTEND Obstetrics & Gynecology
PROC: 10E0XZZ Delivery of Products of Conception, External Approach (ICD-10-PCS; principal; 2020-12-07)
PROC: 3E0334Z Introduction of Serum, Toxoid and Vaccine into Peripheral Vein, Percutaneous Approach (ICD-10-PCS; 2020-12-07)
DX: O24.425 Gestational diabetes mellitus in childbirth, controlled by oral hypoglycemic drugs (principal); Z37.0 Single live birth; O62.3 Precipitate labor; Z20.822 Contact with and (suspected) exposure to COVID-19; O26.893 Other specified pregnancy related conditions, third trimester; Z3A.38 38 weeks gestation of pregnancy; Z67.41 Type O blood, Rh negative
CPT/HCPCS: 36415; 59409; 82947; 85025; 85461; 86592; 86850; 86900; 86901; A9270-GY; J2590; J2790; U0002